=== PATIENT | male | born 1960 | race Caucasian/White ===

== ENCOUNTER 2021-03-20 14:42 | Emergency (ER) | payer OTHER ==
[~2021-03-20] VITALS: Ht 182.9 cm; Wt 81.6 kg
[2021-03-20] MEDS ORDERED: LORAZEPAM INJ 2 MG/ML VIAL ONE (15:11)
[2021-03-20] MEDS: LORAZEPAM INJ 2 MG/ML VIAL IV ONE (15:30)
[2021-03-20 15:35] LABS: BASOPHILS # (AUTO) 0.1 K/uL (0.0-0.2); BASOPHILS % (AUTO) 0.7 % (0.0-2.0); EOSINOPHILS % (AUTO) 1.7 % (0.0-6.0); HEMATOCRIT 51 % (39-51); HEMOGLOBIN 16.8 g/dL (13.5-17.5); LYMPHOCYTES # (AUTO) 1.2 K/uL (0.8-4.8); LYMPHOCYTES % (AUTO) 12.5 % (20.0-44.0); MEAN CORPUSCULAR HGB CONC 33 g/dl (31.0-36.0); MEAN CORPUSCULAR VOLUME 88 fL (80-96); MONOCYTES # (AUTO) 0.8 K/uL (0.1-1.30); NEUTROPHILS # (AUTO) 7.3 K/uL (1.8-8.9); NEUTROPHILS % (AUTO) 77.1 % (43.0-81.0); PLATELET COUNT (AUTO) 254 K/uL (150-450); WHITE BLOOD COUNT (AUTO) 9.5 K/uL (4.3-11.0)
--- NOTE | 2021-03-20 15:41 | NUR ---
PT TO CT
[2021-03-20 15:46] LABS: CALCIUM, SERUM 9.7 mg/dL (8.5-10.1); CREATININE 1.5 mg/dL (0.6-1.3); POTASSIUM 4.9 mmol/L (3.5-5.1)
[2021-03-20 15:52] LABS: ALBUMIN 3.9 g/dL (3.4-5.0); BILIRUBIN,DIRECT 0.2 mg/dL (0.0-0.2); BILIRUBIN,TOTAL 0.7 mg/dL (0.2-1.0)
--- NOTE | 2021-03-20 17:36 | NUR ---
Patient discharged to home in stable condition. Written and verbal after care instructions given. Patient verbalizes understanding of instruction.IV removed. Catheter intact and site benign. Pressure and 4x4 applied to site. No bleeding noted. Pt ambulatory with a steady gait
[2021-03-20 17:38] VITALS: BP 142/67
== END 2021-03-20 17:39 | disposition home or self-care (01) ==
LOC: ER 14:44
DX: R51.9 Headache, unspecified (principal); I10 Essential (primary) hypertension; E11.9 Type 2 diabetes mellitus without complications; Z98.890 Other specified postprocedural states
CPT/HCPCS: 36415; 70450; 71045; 80048; 80076; 84484; 85025; 85730; 93005; 96374; 99285; J2060

== ENCOUNTER 2022-05-14 18:05 | Inpatient (IN) | payer OTHER ==
[~2022-05-14] VITALS: Ht 182.9 cm; Wt 82.1 kg
--- NOTE | 2022-05-14 18:15 | NUR ---
BIBRA 88 FROM HOME W/ C/O HYPOTENSION, GIVEN 500ML NS EN-ROUTE. TO ER BED 9. CHANGED TO GOWN AND ATTACHED TO MONITOR. VS TAKEN.
--- NOTE | 2022-05-14 18:25 | NUR ---
TECH AT BEDSIDE FOR EKG
[2022-05-14] MEDS ORDERED: IV NS 0.9% 1,000 ML BAG IV ONE ×2 (18:30→21:00)
--- NOTE | 2022-05-14 18:30 | NUR ---
IV LINE ESTABLISHED; BLOOD DRAWN AND SENT TO LAB
--- NOTE | 2022-05-14 18:51 | NUR ---
PT UNABLE TO PROVIDE URINE AT THIS TIME; URINAL PROVIDED AT BEDSIDE.
[2022-05-14 19:49] LABS: BASOPHILS # (AUTO) 0.1 K/uL (0.0-0.2); BASOPHILS % (AUTO) 0.4 % (0.0-2.0); EOSINOPHILS % (AUTO) 0.7 % (0.0-6.0); HEMATOCRIT 44 % (39-51); HEMOGLOBIN 14.7 g/dL (13.5-17.5); LYMPHOCYTES # (AUTO) 1.4 K/uL (0.8-4.8); LYMPHOCYTES % (AUTO) 11.1 % (20.0-44.0); MEAN CORPUSCULAR HGB CONC 34 g/dl (31.0-36.0); MEAN CORPUSCULAR VOLUME 84 fL (80-96); MONOCYTES # (AUTO) 1.4 K/uL (0.1-1.30); MONOCYTES % (AUTO) 10.9 % (2.0-12.0); NEUTROPHILS # (AUTO) 9.5 K/uL (1.8-8.9); NEUTROPHILS % (AUTO) 76.9 % (43.0-81.0); PLATELET COUNT (AUTO) 292 K/uL (150-450); RED BLOOD CELL COUNT(AUTO) 5.21 MIL/uL (4.5-6.0); WHITE BLOOD COUNT (AUTO) 12.4 K/uL (4.3-11.0)
--- NOTE | 2022-05-14 19:52 | NUR ---
URINE COLLECTED AND SENT TO LAB
[2022-05-14 20:16] LABS: BILIRUBIN,URINE MODERATE (NEGATIVE); COLOR,URINE YELLOW (YELLOW); LEUKOCYTE ESTERASE ,URINE NEGATIVE (NEGATIVE); NITRITE, URINE NEGATIVE (NEGATIVE); PH,URINE 5.5 (5.0-8.0); PROTEIN,URINE NEGATIVE (NEGATIVE); UGLUCOSE 500 MG/DL mg/dL (NEGATIVE); UROBILINOGEN,URINE 0.2 EU/dL (0.2)
[2022-05-14 20:28] LABS: ALANINE AMINOTRANSFERASE 27 U/L (12-78); ALBUMIN 3.7 g/dL (3.4-5.0); ALKALINE PHOSPHATASE 151 U/L (46-116); ASPARTATE AMINOTRANSFERASE 18 U/L (15-37); BILIRUBIN,DIRECT 0.2 mg/dL (0.0-0.2); BILIRUBIN,TOTAL 0.8 mg/dL (0.2-1.0); CARBON DIOXIDE 22 mmol/L (21-32); CHLORIDE 99 mmol/L (98-107); CREATININE 1.6 mg/dL (0.6-1.3); GLUCOSE 286 mg/dL (74-106); SODIUM SERUM 137 mmol/L (136-145); TOTAL PROTEIN, SERUM 7.7 g/dL (6.4-8.2); UREA NITROGEN, BLOOD 22 mg/dL (7-18)
--- NOTE | 2022-05-14 20:47 | NUR ---
PROCAL 2.1. DR. MACIAS AWARE
--- NOTE | 2022-05-14 21:17 | NUR ---
COVID SWAB DONE AND SENT TO LAB
[2022-05-14] MEDS ORDERED: ACETAMINOPHEN ES 500 MG TABLET ONE (21:22)
[2022-05-14] MEDS ORDERED: ACETAMINOPHEN ES 500 MG TABLET PO ONE (21:30)
[2022-05-15] MEDS ORDERED: HYDROCORTISONE SOD SUCCINATE 100 MG/2 ML VIAL ONE (00:19)
[2022-05-15] MEDS ORDERED: MAG HYDROX/AL HYDROX/SIMETH 30 ML UDC PO PRN (00:30)
[2022-05-15] MEDS ORDERED: ONDANSETRON HCL/PF 4 MG/2 ML VIAL IVP PRN (00:30)
[2022-05-15] MEDS ORDERED: MAGNESIUM HYDROXIDE 30 ML UDC PO PRN (00:30)
[2022-05-15] MEDS ORDERED: Z GUARD REMEDY 4 OZ OINT TP PRN (00:30)
[2022-05-15] MEDS ORDERED: HYDROCORTISONE SOD SUCCINATE 100 MG/2 ML VIAL IV ONE (00:30)
[2022-05-15] MEDS ORDERED: ACETAMINOPHEN 325 MG TABLET PO PRN (00:30)
--- NOTE | 2022-05-15 03:47 | NUR ---
PATIENT TRANSFERRED TO [facility]
[2022-05-15 04:18] VITALS: BP 113/74
[2022-05-15] MEDS ORDERED: DEXTROSE 50%-WATER 50 ML DISP.SYRIN IV PRN (04:30)
[2022-05-15] MEDS: IV NS 0.9% 1,000 ML IV PRN ×2 (05:14→18:24)
--- NOTE | 2022-05-15 05:36 | NUR ---
ADMITTED FROM ED DUE TO HYPOTENSION, FROM HOME, LIVES ALONE, COMPLAINING OF DIZZINESS, CALLED 911 AND FOUND TO HAVE LOW BP. ALERT/ORIENTED X4, STABLE ON ROOM AIR, CLEAR LUNG SOUNDS, NO COMPLAIN OF PAIN. UNSTEADY GAIT, CONTINENT OF BOWEL AND BLADDER, SKIN INTACT. PATIENT REPORTED TO HAVE PANIC ATTACKS AND WAS PRESCRIBED LEXAPRO. PER PATIENT, WHEN TAKING LEXAPRO, FEELING HEAD IS FLOATING, DIZZY AND FALLING OVER. PATIENT ALSO REPORTED NO APPETITE, POOR ORAL INTAKE AND NOT DRINKING FLUIDS. ON SKIN ASSESSMENT, PATIENT REPORTED TO HAVE A CYST LOCATED ON THE SACRAL AREA, SEEING A SPECIALIST FOR REMOVAL IN . HISTORY OF DIABETES, IN ED HAS ELEVATED BLOOD SUGAR. REQUESTED TO BE ON ACCUCHECK. CHILD CARE PROVIDER ALLA ORDERED ACCUCHECK WITH MODERATE SLIDING SCALE. NS AT 100 ML/HR, FALL PRECAUTION.ON ADMISSION, BP STABLE.
[2022-05-15] MEDS: INSULIN REGULAR, HUMAN 100 UNIT/ML 3 ML VIAL SQ PRN ×2 (06:34→11:35)
[2022-05-15] MEDS: BLOOD SUGAR DIAGNOSTIC 1 EACH STRIP VI SCH ×4 (06:35→21:24)
--- NOTE | 2022-05-15 07:30 | NUR ---
RN OPENING NOTE PATIENT IS IN BED, AWAKE, ALERT ORIENTED X 4. DENIES PAIN, BREATHING UNLABORED AND NOT IN ANY FORM OF DISTRESS. ON ROOM AIR SATTING AT 98%. RIGHT ANTECUBITAL LINE INTACT AND INFUSING WITH NS AT 100 ML/HR. BED IS LOCKED IN LOWEST POSITION, 3 SIDE RAILS UP, CALL LIGHT WITHIN REACH, WILL CONTINUE TO MONITOR THROUGHOUT SHIFT.
[2022-05-15] MEDS ORDERED: ATOR80TA PO (07:58)
[2022-05-15] MEDS ORDERED: METO25TA4 PO (07:58)
[2022-05-15] MEDS ORDERED: CLOP75TA15 PO (07:58)
[2022-05-15] MEDS ORDERED: FURO-145 PO (07:58)
[2022-05-15] MEDS ORDERED: LOSA25TA27 PO (07:58)
[2022-05-15] MEDS ORDERED: ASPI-1169 PO (07:58)
[2022-05-15] MEDS ORDERED: NITR0.4T48 SL (07:58)
[2022-05-15 09:08] VITALS: BP 106/60
[2022-05-15 09:41] LABS: CALCIUM, SERUM 8.3 mg/dL (8.5-10.1); CREATININE 1.2 mg/dL (0.6-1.3); POTASSIUM 3.9 mmol/L (3.5-5.1)
[2022-05-15 12:00] VITALS: BP 101/70
--- NOTE | 2022-05-15 14:30 | NUR ---
PATIENT FOUND SITTING ON FLOOR BY RT,PER PATIENT ' I DID NOT FALL ,JUST TIRED SIT ON FLOOR BY MYSELF",VERBALIZED HE IS ANXIOUS AND COMPLAIN ROOM IS WARM. SAT ROOM AIR 98%,BP 101/60,HR 89.AWAKE ,ALERT ORIENTED X4.ABLE TO RANG OF MOTION NO COMPLAIN OF PAIN.
--- NOTE | 2022-05-15 15:21 | NUR ---
REFUSED TO BE TRANSFERRED TO ROOM NEXT TO STATION PREFERRED TO BE ALONE IN HIS ROOM.
--- NOTE | 2022-05-15 15:22 | NUR ---
DR. WOOD MADE AWARE OF PATIENT BEHAVIOUR AND ORDERED LOW DOSE OF ANTI ANXIETY MEDS. PRIMARY RN ,LUANA AWARE.
--- NOTE | 2022-05-15 15:23 | NUR ---
ENGINEERING CHECKED ROOM AND ROOM TEMPERATURE WITH IN RANGE. FAN AT BEDSIDE.
[2022-05-15 16:00] VITALS: BP 100/74
[2022-05-15] MEDS: ALPRAZOLAM 0.25 MG TABLET PO SCH (16:02)
--- NOTE | 2022-05-15 19:00 | NUR ---
RN CLOSING NOTE PATIENT REMAINED STABLE THROUGHOUT SHIFT. BREATHING UNLABORED AND NOT IN ANY FORM OF DISTRESS. PATIENT APPEARS CALMER AND STATES "I FEEL MUCH CALMER NOW." IV REMAINS INTACT AND PATENT. ALL HOSPITAL SAFETY PRECAUTIONS IN PLACE. WILL ENDORSE TO MOCCASIN SEWER NURSE.
--- NOTE | 2022-05-15 19:30 | NUR ---
RN OPENING NOTE PATIENT A/0 X4 BREATHING UNLABORED IN NO PAIN. PT NOTE WITH MILD ANXIETY AT THIS TIME PLAN OF CARE FOR TO NIGHT GONE OVER WIHT PT. HE APPEARS MUCH CALMER AFTER DISCUSSION. PT DID REQUEST SLEEPING PILL BE GIVEN TONIGHT WILL ADMINISTER WHEN APPROPRIATE TIME. IV RUNNING MS @100ML/HR INTACT AND PATENT. ALL HOSPITAL SAFETY PRECAUTIONS IN PLACE. WILL CONTINUE TO MONITOR PT.
[2022-05-15 20:00] VITALS: BP 93/56
[2022-05-15] MEDS: ZOLPIDEM TARTRATE 5 MG TABLET PO PRN (20:49)
--- NOTE | 2022-05-15 20:58 | NUR ---
TELECOMMUNICATIONS FIELD ENGINEER NOTES PRN MEEK GIVEN PER PT REQUEST PT NOTED TO BE VERY CALM AT THIS TIME. ALL NEEDS MET WILL. CONTINUE TO MONITOR.
[2022-05-15] MEDS: *INSULIN REGULAR(HUMULIN R)HUM 100 UNIT/ML VIAL SQ PRN (21:25)
[2022-05-16 00:39] VITALS: BP 90/53
[2022-05-16 04:00] VITALS: BP 102/57
[2022-05-16 06:40] LABS: BASOPHILS % (AUTO) 0.5 % (0.0-2.0); EOSINOPHILS % (AUTO) 2.5 % (0.0-6.0); HEMATOCRIT 38 % (39-51); HEMOGLOBIN 12.8 g/dL (13.5-17.5); LYMPHOCYTES # (AUTO) 1.3 K/uL (0.8-4.8); LYMPHOCYTES % (AUTO) 22.3 % (20.0-44.0); MEAN CORPUSCULAR HGB CONC 34 g/dl (31.0-36.0); MEAN CORPUSCULAR VOLUME 84 fL (80-96); MONOCYTES # (AUTO) 0.6 K/uL (0.1-1.30); MONOCYTES % (AUTO) 10.5 % (2.0-12.0); NEUTROPHILS # (AUTO) 3.8 K/uL (1.8-8.9); NEUTROPHILS % (AUTO) 64.2 % (43.0-81.0); PLATELET COUNT (AUTO) 206 K/uL (150-450); RED BLOOD CELL COUNT(AUTO) 4.47 MIL/uL (4.5-6.0); WHITE BLOOD COUNT (AUTO) 5.9 K/uL (4.3-11.0)
--- NOTE | 2022-05-16 06:54 | NUR ---
RN NOTE PATIENT ASLEEP IN BED BREATHING UNLABORED ON 2L OF O2 VIA NASAL CANULA SAT 96% , NO REPORTS OF PAIN AT THIS TIME. PT REPORTS NO ANXIETY AT THIS TIME. PT WAS ABLE TO SLEEP SOUNDLY THROUGH THE NIGHT. HOB ELEVATED FOR SAFETY. BED IN LOW POSITION FOR SAFETY. BILATERAL SIDERAILS UP X2 FOR SAFETY. ALL DUE MEDS GIVEN AND TOLERATED WELL. RUNNING NS @100ML/HR ON RFA #20G ALL HOSPITAL SAFETY PRECAUTIONS IN PLACE. WILL ENDORSE CARE TO DAY SHIFT NURSE.
--- NOTE | 2022-05-16 07:10 | NUR ---
RN OPENING NOTE RECEIVED PATIENTIN BED ASLEEP EASILY AROUSABLE, A/0 X4 BREATHING UNLABORED IN NO PAIN. WILL ADMINISTER WHEN APPROPRIATE TIME. IV RUNNING MS @100ML/HR INTACT AND PATENT. ALL HOSPITAL SAFETY PRECAUTIONS IN PLACE. WILL CONTINUE TO MONITOR PT.
[2022-05-16 07:29] LABS: CALCIUM, SERUM 8.1 mg/dL (8.5-10.1); MAGNESIUM 1.9 mg/dL (1.8-2.4); PHOSPHORUS 2.6 mg/dL (2.5-4.9); POTASSIUM 3.7 mmol/L (3.5-5.1)
[2022-05-16] MEDS: BLOOD SUGAR DIAGNOSTIC 1 EACH STRIP VI SCH ×4 (07:45→22:00)
[2022-05-16] MEDS: INSULIN REGULAR, HUMAN 100 UNIT/ML 3 ML VIAL SQ PRN ×2 (07:56→12:39)
[2022-05-16 08:00] VITALS: BP 112/61
[2022-05-16] MEDS: ALPRAZOLAM 0.25 MG TABLET PO SCH ×2 (09:34→16:54)
[2022-05-16] MEDS: METFORMIN 500 MG TABLET PO SCH ×2 (09:34→16:54)
[2022-05-16 12:00] VITALS: BP 96/62
--- NOTE | 2022-05-16 12:44 | NUR ---
RN NOTES: reviewed lab result HGB A1C 13.[address] Medeiros he said hold discharge today he started him on moetformin no new order at this time
[2022-05-16] MEDS: IV NS 0.9% 1,000 ML IV PRN ×2 (14:29→23:58)
[2022-05-16 16:00] VITALS: BP 111/57
--- NOTE | 2022-05-16 17:34 | NUR ---
RN NOTES: PT REQUEST TO TALK TO DIRECTOR OF SPORTS PERFORMANCE TO DISCUSS DIABETES DIET
--- NOTE | 2022-05-16 19:28 | NUR ---
BANANA HANDLER CLOSING NOTE: PATIENT REMAINED STABLE THROUGHOUT SHIFT. BREATHING UNLABORED AND NOT IN ANY FORM OF DISTRESS. O 2 SAT REMAINS 97-98% ON ROOM AIR HE SATED HE DOES NOT FEEL PANIC OR ANXIOUS ANYMORE AND NOT IN ANY KIND OF RESPIRATORY DISTRESS. PATIENT APPEARS CALMER AND STATES "I FEEL MUCH CALMER NOW." IV REMAINS INTACT AND PATENT. ALL HOSPITAL SAFETY PRECAUTIONS IN PLACE. ENDORSED TO LINING SETTER NURSE.
[2022-05-16 20:00] VITALS: BP 103/72
--- NOTE | 2022-05-16 20:14 | NUR ---
TRAVERSE ROD ASSEMBLER OPENING NOTES: RECEIVED PATIENT AWAKE IN BED, BED IN LOW POSITION, CALL LIGHTS WITHIN REACH, NO COMPLAIN OF PAIN AND DISCOMFORT AT THIS TIME, ON O2 INHALATION AT 2LPM SATURATING WELL, ON TELE [id number],AMBULATORY WITH ASSISTANCE REMIND TO USE CALL LIGHTS WHEN NEEDED ASSISTANCE, IV LINE AT RAC#20 WITH ONGOING NSS@ 100ML/HR INFUSING WELL, PATIENT KEPT CLEAN AND DRY ALL NEEDS MET WILL CONTINUE TO MONITOR.
[2022-05-16] MEDS: *INSULIN REGULAR(HUMULIN R)HUM 100 UNIT/ML VIAL SQ PRN (23:19)
[2022-05-16] MEDS: ZOLPIDEM TARTRATE 5 MG TABLET PO PRN (23:24)
--- NOTE | 2022-05-16 23:54 | NUR ---
RN NOTES: BLOOD SUGAR -154/ 2 UNITSINSULIN GIVEN PER SLIDING SCALE.
[2022-05-17] VITALS: BP 100/71
[2022-05-17 04:00] VITALS: BP 109/70
--- NOTE | 2022-05-17 07:22 | NUR ---
RN OPENING NOTES: RECEIVED PATIENT IN BED ASLEEP. BED IN LOW POSITION, CALL LIGHTS WITHIN REACH, NO COMPLAIN OF PAIN AND DISCOMFORT AT THIS TIME, ON O2 INHALATION AT 2LPM SATURATING WELL, ON TELE [id number],AMBULATORY WITH ASSISTANCE PER NIGHTSHIFT RN. IV LINE AT RAC#20 WITH ONGOING NS@ 100ML/HR INFUSING WELL. SKIN CONDITIONS NOTED IN PHYSICAL CHART. WILL CONTINUE PLAN OF CARE AND ANTICIPATE NEEDS.
[2022-05-17 08:00] VITALS: BP 84/57
[2022-05-17] MEDS: BLOOD SUGAR DIAGNOSTIC 1 EACH STRIP VI SCH ×2 (08:27→12:47)
[2022-05-17] MEDS: METFORMIN 500 MG TABLET PO SCH (08:28)
[2022-05-17] MEDS: ALPRAZOLAM 0.25 MG TABLET PO SCH (08:28)
[2022-05-17] MEDS: INSULIN REGULAR, HUMAN 100 UNIT/ML 3 ML VIAL SQ PRN ×2 (08:39→12:47)
[2022-05-17] MEDS: IV NS 0.9% 1,000 ML IV PRN (10:24)
[2022-05-17 12:00] VITALS: BP 98/61
--- NOTE | 2022-05-17 14:24 | NUR ---
PATIENT HAS BEEN DISCHARGED HOME. IV ACCESS DISCONTINUED, NO BLEEDING NOTED. PATIENT SIGNED BELONGINGS LIST AND DISCHARGE INSTRUCTIONS. ALL BELONGINGS ACCOUNTED FOR. PATIENT ID BAND REMOVED AND DISPOSED OF IN MEDICAL RECORDS SHRED BIN. PATIENT WAS BROUGHT TO THE FRONT LOBBY VIA WHEELCHAIR WHERE HE WAS PICKED UP BY HIS SON. PATIENT LEFT HOSPITAL PROPERTY WITH SON IN STABLE CONDITION VIA PRIVATE AUTOMOBILE.
== END 2022-05-17 14:00 | disposition home or self-care (01) | DRG 756 ==
LOC: ER 18:17 → TELE1 05-15 03:17
PROVIDERS: ADMIT Internal Medicine; ATTEND Internal Medicine
DX: F41.0 Panic disorder [episodic paroxysmal anxiety] (principal); J96.01 Acute respiratory failure with hypoxia; N17.0 Acute kidney failure with tubular necrosis; I95.9 Hypotension, unspecified; E11.65 Type 2 diabetes mellitus with hyperglycemia; I25.10 Atherosclerotic heart disease of native coronary artery without angina pectoris; I10 Essential (primary) hypertension; Z95.5 Presence of coronary angioplasty implant and graft; F41.9 Anxiety disorder, unspecified; Z79.84 Long term (current) use of oral hypoglycemic drugs; Z20.822 Contact with and (suspected) exposure to COVID-19
CPT/HCPCS: 36415; 71045-TC; 80048-TC; 80076-TC; 82533; 82962-TC; 83605-TC; 83735-TC; 83880; 84100-TC; 84443-TC; 84484-TC; 85025-TC; 85378-TC; 85730-TC; 87040-TC; 87081-TC; 87086-TC; 94799-TC; C9803; G0378; J1720; J1815; J7030